=== PATIENT | female | born 1965 | race Caucasian/White ===

== ENCOUNTER 2018-12-02 07:14 | Day surgery (SDC) | payer MEDICAID ==
[2018-12-02] MEDS ORDERED: PROPOFOL 10 MG/ML VIAL IV ONE (07:15)
[2018-12-02] MEDS ORDERED: LIDOCAINE 2% MDV (20MG/ML) 20ML VIAL IV ONE (07:15)
[2018-12-02] MEDS ORDERED: MIDAZOLAM HCL 2MG/2ML VIAL IV ONE (07:15)
--- NOTE | 2018-12-03 17:20 | Operative Note ---
DATE: 12/02/2018 OPERATION: COLONOSCOPY with cold snare polypectomy and cold forceps polypectomy. PREOPERATIVE DIAGNOSIS: Family history of colon polyps and colon cancer screening. POSTOPERATIVE DIAGNOSIS: Colon polyps. PROCEDURE: After informed consent was obtained from the patient, she was placed in the left lateral decubitus position in the endoscopy suite, sedated and monitored by the department of anesthesia. Digital rectal exam was unremarkable. A well-lubricated [id number] colonoscope was inserted into the rectum and advanced to the cecum. Preparation quality was good. The cecum, cecal bulb, ileocecal valve, appendiceal orifice, and ascending colon were unremarkable. There was a diminutive transverse colon polyp removed with a cold forceps. The remainder of the transverse colon, descending colon, and sigmoid colon were unremarkable. The rectum did reveal a 5 mm sessile polyp removed with a cold snare. Minimal bleeding was noted. The polyp was retrieved. J-turn views of the anorectum revealed small hypertrophied anal papillae. The endoscope was straightened, the rectal ampulla deflated, and the endoscope was removed. RECOMMENDATIONS: I would suggest the patient resume her medications and diet. She should undergo repeat exam in 5 years pending tissue histology. As always, thank you for allowing me to participate in the healthcare of your patients. EDDI
== END 2018-12-02 09:55 | disposition home or self-care (01) ==
LOC: HOP 07:14
PROVIDERS: ATTEND Internal Medicine Gastroenterology
DX: Z12.11 Encounter for screening for malignant neoplasm of colon (principal); Z83.71 Family history of colonic polyps; K63.5 Polyp of colon; D12.8 Benign neoplasm of rectum; K62.89 Other specified diseases of anus and rectum